=== PATIENT | male | born 1970 | race Caucasian/White ===

== ENCOUNTER 2016-12-14 13:12 | Inpatient (IN) | payer OTHER ==
[2016-12-14 14:27] VITALS: BMI 28.4
--- NOTE | 2016-12-14 16:11 | HP ---
CIWA Score - CIWA Score Nausea/Vomitin Muscle Tremors: 3 Anxiety: 3 Agitation: 3 Paroxysmal Sweats: 2 Orientation: 0-Oriented Tacttile Disturbances: 2-Mild Itch/Numbness/Burn Auditory Disturbances: 2-Mild Harshness/Frighten Visual Disturbances: 2-Mild Sensitivity Headache: 2-Mild CIWA-Ar Total Score: 22 Admission ROS BHS - HPI Chief Complaint: need help to stop drinking alcohol,cocaine,marijuana,heroin dependence, withdrawal symptom last detox 10/04 [place] syncope alcohol related anxiety,depression,insomnia no significant period of sobriety type 2 dm Allergies/Adverse Reactions: Allergies Allergy/AdvReac Type Severity Reaction Status Date / Time No Known Allergies Allergy Verified 12/14/16 16:02 History of Present Illness: this 46 years old male with alcohol ,cocaine,marijuana dependence,heroin dependence for detox as mentioned above for inpatient detox Exam Limitations: No Limitations - Ebola screening Have you traveled outside of the country in the last 21 days: No Have you had contact with anyone from an Ebola affected area: No Have you been sick,other than usual withdrawal symptoms: No Do you have a fever: No - Review of Systems Constitutional: Loss of Appetite, Malaise, Night Sweats, Changes in sleep, Unintentional Wgt. Loss, Other EENT: reports: Nose Congestion Respiratory: reports: No Symptoms reported Cardiac: reports: Palpitations GI: reports: Diarrhea, Nausea, Poor Appetite, Abdominal cramping : reports: No Symptoms Reported Musculoskeletal: reports: Back Pain, Muscle Pain Integumentary: reports: Dryness Neuro: reports: Headache, Tremors Endocrine: reports: No Symptoms Reported Hematology: reports: No Symptoms Reported Psychiatric: reports: Anxious, Depressed (insomnia) Patient History - Patient Medical History Hx Anemia: No Hx Asthma: No Hx Chronic Obstructive Pulmonary Disease (COPD): No Hx Cancer: No Hx Cardiac Disorders: No Hx Congestive Heart Failure: No Hx Hypertension: No Hx Hypercholesterolemia: No Hx Pacemaker: No HX Cerebrovascular Accident: No Hx Seizures: No Hx Dementia: No Hx Diabetes: Yes (no med) Hx Gastrointestinal Disorders: No Hx Liver Disease: No Hx Genitourinary Disorders: No Hx Sexually Transmitted Disorders: No Hx Renal Disease (ESRD): No Hx Thyroid Disease: No Hx Human Immunodeficiency Virus (HIV): No (last 2015 negative) Hx Hepatitis C: No Hx Depression: Yes (anxiety) Hx Suicide Attempt: No Hx Bipolar Disorder: No Hx Schizophrenia: No Other Medical History: no suicidal,no homicidal - Patient Surgical History Past Surgical History: No - PPD History Previous Implant?: Yes Documented Results: Negative w/o proof - Smoking Cessation Smoking history: Current every day smoker Have you smoked in the past 12 months: Yes Aproximately how many cigarettes per day: 10 Cigars Per Day: 0 Hx Chewing Tobacco Use: No Initiated information on smoking cessation: Yes 'Breaking Loose' booklet given: 12/14/16 - Substances Abused Alcohol Route: Oral Frequency: Daily Amount used: 6PK BEER Age of first use: 14 Date of Last Use: 12/14/16 Crack Route: Oral Frequency: Daily Amount used: $100 Age of first use: 21 Date of Last Use: 12/14/16 Heroin Route: Inhalation Frequency: 3-6 times per week Amount used: 1 BAG Age of first use: 25 Date of Last Use: 12/13/16 Marijuana/Hashish Route: Smoking Frequency: Daily Amount used: $30 Age of first use: 13 Date of Last Use: 12/13/16 Family Disease History - Family Disease History Family History: Denies Admission Physical Exam [facility] - Vital Signs Vital Signs: Vital Signs - 24 hr 12/14/16 14:25 Temperature 98 F Pulse Rate 80 Respiratory 20 Rate Blood Pressure 125/66 - Physical General Appearance: Yes: Moderate Distress, Tremorous, Irritable, Sweating, Anxious HEENTM: Yes: Normal ENT Inspection, Pharynx Normal, Nasal Congestion Respiratory: Yes: Lungs Clear, Normal Breath Sounds, No Respiratory Distress Neck: Yes: Within Normal Limits Breast: Yes: Within Normal Limits Cardiology: Yes: Within Normal Limits, Regular Rhythm, Regular Rate, S1, S2 Abdominal: Yes: Within Normal Limits, Normal Bowel Sounds, Non Tender, Flat, Soft Genitourinary: Yes: Within Normal Limits Back: Yes: Normal Inspection, Muscle Spasm Musculoskeletal: Yes: Back pain, Muscle Pain Extremities: Yes: Normal Range of Motion, Tremors Neurological: Yes: dog and cat food cook II-XII NML intact, Fully Oriented, Alert, Motor Strength 5/5 Integumentary: Yes: Dry Lymphatic: Yes: Within Normal Limits - Diagnostic (1) Alcohol dependence with uncomplicated withdrawal Current Visit: Yes Status: Acute (2) Cocaine dependence Current Visit: Yes Status: Acute (3) Cannabis dependence Current Visit: Yes Status: Acute (4) Heroin dependence Current Visit: Yes Status: Acute (5) Syncope Current Visit: Yes Status: Acute (6) Low back pain Current Visit: Yes Status: Acute (7) Anxiety and depression Current Visit: Yes Status: Acute (8) DM type 2 (diabetes mellitus, type 2) Current Visit: Yes Status: Acute Cleared for Admission [facility] - Detox or Rehab [facility] Level of Care: Medically Managed Detox Regimen/Protocol: Librium (urine for drug screen negative for opiate patient is awared he will not get methadone) [facility] Breath Alcohol Content Breath Alcohol Content: 0 Urine Drug Screen - Results Drug Screen Negative: No Urine Drug Screen Results: THC-Marijuana, SHAHANA-Cocaine
[2016-12-14] MEDS ORDERED: MAGNESIUM HYDROX 2400MG/30ML ORAL SUSPENSION 30 ML CUP PO PRN (16:34)
[2016-12-14] MEDS ORDERED: hydrOXYzine PAMOATE 50 MG CAPSULE (FP) PO PRN (16:34)
[2016-12-14] MEDS ORDERED: MAGNESIUM CITRATE 300 ML BOTTLE PO PRN (16:34)
[2016-12-14] MEDS ORDERED: P-EPHED 60MG/TRIPROLIDI 2.5MG TABLET PO PRN (16:34)
[2016-12-14] MEDS ORDERED: MAG HYDROX/AL HYDROX/SIMETH 30 ML UNIT-DOSE CUP PO PRN (16:34)
[2016-12-14] MEDS ORDERED: MENTHOL/PHENOL 1 EACH UD MM PRN (16:34)
[2016-12-14] MEDS ORDERED: diphenhydrAMINE HCL 50 MG CAPSULE PO PRN (16:34)
[2016-12-14] MEDS ORDERED: LOPERAMIDE HCL 2 MG CAPSULE PO PRN (16:34)
[2016-12-14] MEDS ORDERED: guaiFENesin/D-METHORPHAN HB 10 ML UNIT-DOSE CUPS PO PRN (16:34)
[2016-12-14] MEDS ORDERED: chlordiazePOXIDE HCL 25 MG CAPSULE PO PRN (16:34)
[2016-12-14] MEDS ORDERED: CYCLOBENZAPRINE HCL 10 MG TABLET (FP) PO PRN (16:36)
[2016-12-14] MEDS ORDERED: chlordiazePOXIDE HCL 25 MG CAPSULE PO ONE (17:15)
[2016-12-14] MEDS: cloNIDine HCL 0.1 MG TABLET PO SCH (22:14)
[2016-12-14] MEDS: THIAMINE HCL 100 MG TABLET (FP) PO SCH (22:14)
[2016-12-14] MEDS: chlordiazePOXIDE HCL 25 MG CAPSULE PO SCH (22:14)
[2016-12-15] MEDS: ACETAMINOPHEN 325 MG TABLET (FP) PO PRN (04:13)
[2016-12-15] MEDS: chlordiazePOXIDE HCL 25 MG CAPSULE PO SCH (05:05)
[2016-12-15] MEDS ORDERED: diazePAM 5 MG TABLET PO PRN (08:59)
--- NOTE | 2016-12-15 09:04 | PN ---
S CIWA - CIWA Score Nausea/Vomitin Muscle Tremors: 3 Anxiety: 3 Agitation: 3 Paroxysmal Sweats: 1-Minimal Palms Moist Orientation: 0-Oriented Tacttile Disturbances: 1-Very Mild Itch/Numbness Auditory Disturbances: 1-Very Mild Visual Disturbances: 1-Very Mild Sensitivity Headache: 2-Mild CIWA-Ar Total Score: 18 BHS Progress Note (SOAP) Subjective: ALERT,IRRITABLE,ANXIOUS,INTERRUPTED SLEEP,TREMOR,PAIN IN THE BODY AND BACK Objective: 12/15/16 09:01 Vital Signs Temperature 97.9 F 12/15/16 06:24 Pulse Rate 79 12/15/16 06:24 Respiratory Rate 18 12/15/16 06:24 Blood Pressure 127/87 12/15/16 06:24 O2 Sat by Pulse Oximetry (%) EKG NSR,OCCASIONAL VPC, NO CHEST PAIN,NO SOB,NO DIZZINESS 12/15/16 09:02 Laboratory Last Values POC Glucometer 117 UNITS (()) 12/15/16 05:04 LABS PENDING Assessment: 12/15/16 09:03 WITHDRAWAL SYMPTOM Plan: CONTINUE DETOX,PATIENT WOULD LIKE [facility] TO BECHANGED TO [facility]
[2016-12-15] MEDS ORDERED: diazePAM 5 MG TABLET PO ONE (09:19)
[2016-12-15] MEDS: cloNIDine HCL 0.1 MG TABLET PO SCH ×2 (10:05→22:14)
[2016-12-15] MEDS: PRENATAL VITAMINS W/ FOLIC ACID TABLET (FP) PO SCH (10:05)
[2016-12-15 10:12] LABS: MCHC 33.3 g/dl (32.0-35.9); MEAN CELL VOLUME 93.1 fl (80-96); MEAN PLT VOLUME 10.9 fl (7.5-11.1); PLATELET COUNT 174 K/MM3 (134-434); RDW 13.4 % (11.9-15.9); WHITE BLOOD COUNT 4.6 K/mm3 (4.0-10.0)
--- NOTE | 2016-12-15 10:26 | CONSULT ---
[facility] Psychiatric Consult - Data Date of interview: 12/15/16 Admission source: [facility] Identifying data: First admission to [facility] for this 46 y/o male seeking detox treatment for alcohol,cocaine,heroin and cannabis dependence.Patient is single,a father of one,homeless,unemployed and supported on food stamps. Substance Abuse History: Smoking Cessation. Smoking history: Current every day smoker. Have you smoked in the past 12 months: Yes. Aproximately how many cigarettes per day: 10. Cigars Per Day: 0. Hx Chewing Tobacco Use: No. Initiated information on smoking cessation: Yes. 'Breaking Loose' booklet given : 12/14/16. - Substances Abused. Alcohol. Route: Oral. Frequency: Daily. Amount used: 6PK BEER. Age of first use: 14. Date of Last Use: 12/14/16. * * Crack. Route: Oral. Frequency: Daily. Amount used: $100. Age of first use : 21. Date of Last Use: 12/14/16. Heroin. Route: Inhalation. Frequency: 3 -6 times per week. Amount used: 1 BAG. Age of first use: 25. Date of Last Use : 12/13/16. Marijuana/Hashish. Route: Smoking. Frequency: Daily. Amount used: $30. Age of first use: 13. Date of Last Use: 12/13/16. Confirmed by patient. Medical History: Lower back pain and diabetes mellitus (NIDDM). Psychiatric History: Patient denies. Physical/Sexual Abuse/Trauma History: Patient denies. Additional Comment: Urine Drug Screen Results: THC-Marijuana, SHAHANA-Cocaine.Noted. Mental Status Exam - Mental Status Exam Alert and Oriented to: Time, Place, Person Cognitive Function: Good Patient Appearance: Unkempt, Disheveled (unshaven) Mood: Angry, Withdrawn, Irritable Affect: Constricted Patient Behavior: Fatigued, Uncooperative Speech Pattern: Clear Voice Loudness: Normal Thought Process: Goal Oriented Thought Disorder: Not Present Hallucinations: Denies Suicidal Ideation: Denies Homicidal Ideation: Denies Insight/Judgement: Poor Sleep: Fair Appetite: Good Muscle strength/Tone: Normal Gait/Station: Normal Psychiatric Findings - Problem List ([place] 1, 2,3) (1) Alcohol dependence with uncomplicated withdrawal Current Visit: Yes Status: Acute (2) Cannabis dependence Current Visit: Yes Status: Acute (3) Cocaine dependence Current Visit: Yes Status: Acute (4) Heroin dependence Current Visit: Yes Status: Acute (5) Nicotine dependence Current Visit: Yes Status: Acute (6) Substance induced mood disorder Current Visit: Yes Status: Acute (7) DM type 2 (diabetes mellitus, type 2) Current Visit: Yes Status: Chronic (8) Low back pain Current Visit: Yes Status: Chronic - Initial Treatment Plan Initial Treatment Plan: Psychoeducation.Detoxification.Observation.
[2016-12-15 10:51] LABS: ALBUMIN 3.9 g/dl (3.4-5.0); ALK PHOS 84 U/L (45-117); ANION GAP 9 (8-16); BILIRUBIN,TOTAL 0.4 mg/dL (0.2-1.0); CALCIUM 8.4 mg/dL (8.5-10.1); CO2 29 mmol/L (21-32); CREATININE 1.1 mg/dL (0.7-1.3); GLUCOSE,RANDOM 115 mg/dL (74-106); SGOT/AST 19 U/L (15-37); SGPT/ALT 25 U/L (12-78); TOT PROT 6.7 g/dl (6.4-8.2)
[2016-12-15 10:52] LABS: HIV 1 & 2 AB NEGATIVE; HIV 1 AGp24 NEGATIVE
--- NOTE | 2016-12-15 12:36 | EKG ---
Test Reason : Blood Pressure : / mmHG Vent. Rate : 066 BPM Atrial Rate : 066 BPM P-R Int : 150 ms QRS Dur : 100 ms QT Int : 420 ms P-R-T Axes : 056 047 029 degrees QTc Int : 440 ms SINUS RHYTHM WITH OCCASIONAL PREMATURE VENTRICULAR COMPLEXES MINIMAL VOLTAGE CRITERIA FOR LVH, MAY BE NORMAL VARIANT BORDERLINE ECG NO PREVIOUS ECGS AVAILABLE Confirmed by YEVGENIY JONAS MD ([id number]) on 12/15/2016 12:36:37 PM Referred By: Confirmed By:YEVGENIY JONAS MD
[2016-12-15] MEDS: diazePAM 5 MG TABLET PO SCH ×2 (14:49→22:14)
[2016-12-15] MEDS: IBUPROFEN 400 MG TABLET (FP) PO PRN (14:50)
[2016-12-15] MEDS: THIAMINE HCL 100 MG TABLET (FP) PO SCH (22:51)
[2016-12-15] MEDS ORDERED: chlordiazePOXIDE HCL 25 MG CAPSULE PO SCH (23:00)
[2016-12-16] MEDS: IBUPROFEN 400 MG TABLET (FP) PO PRN ×3 (01:03→16:34)
[2016-12-16] MEDS: diazePAM 5 MG TABLET PO SCH ×2 (05:33→13:18)
--- NOTE | 2016-12-16 09:38 | PN ---
[facility] CIWA - CIWA Score Nausea/Vomitin-No Nausea/No Vomiting Muscle Tremors: 4-Moderate,w/Arms Extend Anxiety: 4-Mod. Anxious/Guarded Agitation: 4-Moderately Restless Paroxysmal Sweats: 1-Minimal Palms Moist Orientation: 0-Oriented Tacttile Disturbances: 3-Moderate Itch/Numb/Burn Auditory Disturbances: 0-None Visual Disturbances: 0-None Headache: 0-None Present CIWA-Ar Total Score: 16 S Progress Note (SOAP) Subjective: ANXIETY,SWEATS,IRRITABILITY,TOOTHACHE/JAW PAIN/HEADACHE-UNABLE TO SLEEP DUE TO PAIN--DECAYED RIGHT LOWER MOLAR. Objective: 12/16/16 09:37 Vital Signs Temperature 95.8 F L 12/16/16 06:13 Pulse Rate 80 12/16/16 06:13 Respiratory Rate 16 12/16/16 06:13 Blood Pressure 105/68 12/16/16 06:13 O2 Sat by Pulse Oximetry (%) Laboratory Last Values WBC 4.6 K/mm3 (4.0-10.0) 12/15/16 06:00 RBC 4.79 M/mm3 (4.00-5.60) 12/15/16 06:00 Hgb 14.8 GM/dL (11.7-16.9) 12/15/16 06:00 Hct 44.6 % (35.4-49) 12/15/16 06:00 MCV 93.1 fl (80-96) 12/15/16 06:00 MCHC 33.3 g/dl (32.0-35.9) 12/15/16 06:00 RDW 13.4 % (11.9-15.9) 12/15/16 06:00 Plt Count 174 K/MM3 (134-434) 12/15/16 06:00 MPV 10.9 fl (7.5-11.1) 12/15/16 06:00 Sodium 140 mmol/L (136-145) 12/15/16 06:00 Potassium 4.2 mmol/L (3.5-5.1) 12/15/16 06:00 Chloride 102 mmol/L (98-107) 12/15/16 06:00 Carbon Dioxide 29 mmol/L (21-32) 12/15/16 06:00 Anion Gap 9 (8-16) 12/15/16 06:00 BUN 14 mg/dL (7-18) 12/15/16 06:00 Creatinine 1.1 mg/dL (0.7-1.3) 12/15/16 06:00 Creat Clearance w eGFR > 60 (>60) 12/15/16 06:00 POC Glucometer 117 UNITS (()) 12/15/16 05:04 Random Glucose 115 mg/dL (74-106) H 12/15/16 06:00 Calcium 8.4 mg/dL (8.5-10.1) L 12/15/16 06:00 Total Bilirubin 0.4 mg/dL (0.2-1.0) 12/15/16 06:00 AST 19 U/L (15-37) 12/15/16 06:00 ALT 25 U/L (12-78) 12/15/16 06:00 Alkaline Phosphatase 84 U/L (45-117) 12/15/16 06:00 Total Protein 6.7 g/dl (6.4-8.2) 12/15/16 06:00 Albumin 3.9 g/dl (3.4-5.0) 12/15/16 06:00 RPR Titer Nonreactive (NONREACTIVE) 12/15/16 06:00 HIV 1&2 Antibody Screen Negative 12/14/16 08:00 HIV P24 Antigen Negative 12/14/16 08:00 LEFT LOWER MOLAR TOOTH DECAY/REDNESS/SWELLING. Assessment: 12/16/16 09:38 WITHDRAWAL SX Plan: CONTINUE DETOX AUGMENTIN 875 MG PO BID VISCOUS LIDOCAINE 2% 5 ML SWISH AND SPIT Q3H PRN
[2016-12-16] MEDS ORDERED: LIDOCAINE VISCOUS 2% ORAL/TOP 20 ML UNIT-DOSE CUP MM PRN (09:52)
[2016-12-16] MEDS ORDERED: AMOX TR/POT CLAV 875MG/125MG TABLETS (FP) PO ONE (10:00)
[2016-12-16] MEDS: ACETAMINOPHEN 325 MG TABLET (FP) PO PRN (10:17)
[2016-12-16] MEDS: PRENATAL VITAMINS W/ FOLIC ACID TABLET (FP) PO SCH (10:18)
[2016-12-16] MEDS: cloNIDine HCL 0.1 MG TABLET PO SCH (10:19)
[2016-12-16 13:22] VITALS: BP 103/69; PULSE 85; TEMP 98.1
[2016-12-16] MEDS ORDERED: AMOX TR/POT CLAV 875MG/125MG TABLETS (FP) PO SCH (17:30)
--- NOTE | 2016-12-16 19:11 | DS ---
[facility] Detox Discharge Summary Admission Date: 12/14/16 Discharge Date: 12/16/16 - History Present History: Alcohol Dependence, Cannabis Dependence, Cocaine Dependence, Opioid Dependence Additional Comments: patient insists to leave the unit, refuses to wait face to face with the provider consider follow up as per arranged by the counselor refuse e prescription Pertinent Past History: diabetes ii depression nicotine dependence - Physical Exam Results Vital Signs: Vital Signs Temperature 98.1 F 12/16/16 13:21 Pulse Rate 85 12/16/16 13:21 Respiratory Rate 18 12/16/16 13:21 Blood Pressure 103/69 12/16/16 13:21 O2 Sat by Pulse Oximetry (%) Pertinent Admission Physical Exam Findings: withdrawal sx Laboratory Last Values WBC 4.6 K/mm3 (4.0-10.0) 12/15/16 06:00 RBC 4.79 M/mm3 (4.00-5.60) 12/15/16 06:00 Hgb 14.8 GM/dL (11.7-16.9) 12/15/16 06:00 Hct 44.6 % (35.4-49) 12/15/16 06:00 MCV 93.1 fl (80-96) 12/15/16 06:00 MCHC 33.3 g/dl (32.0-35.9) 12/15/16 06:00 RDW 13.4 % (11.9-15.9) 12/15/16 06:00 Plt Count 174 K/MM3 (134-434) 12/15/16 06:00 MPV 10.9 fl (7.5-11.1) 12/15/16 06:00 Sodium 140 mmol/L (136-145) 12/15/16 06:00 Potassium 4.2 mmol/L (3.5-5.1) 12/15/16 06:00 Chloride 102 mmol/L (98-107) 12/15/16 06:00 Carbon Dioxide 29 mmol/L (21-32) 12/15/16 06:00 Anion Gap 9 (8-16) 12/15/16 06:00 BUN 14 mg/dL (7-18) 12/15/16 06:00 Creatinine 1.1 mg/dL (0.7-1.3) 12/15/16 06:00 Creat Clearance w eGFR > 60 (>60) 12/15/16 06:00 POC Glucometer 117 UNITS (()) 12/15/16 05:04 Random Glucose 115 mg/dL (74-106) H 12/15/16 06:00 Calcium 8.4 mg/dL (8.5-10.1) L 12/15/16 06:00 Total Bilirubin 0.4 mg/dL (0.2-1.0) 12/15/16 06:00 AST 19 U/L (15-37) 12/15/16 06:00 ALT 25 U/L (12-78) 12/15/16 06:00 Alkaline Phosphatase 84 U/L (45-117) 12/15/16 06:00 Total Protein 6.7 g/dl (6.4-8.2) 12/15/16 06:00 Albumin 3.9 g/dl (3.4-5.0) 12/15/16 06:00 RPR Titer Nonreactive (NONREACTIVE) 12/15/16 06:00 HIV 1&2 Antibody Screen Negative 12/14/16 08:00 HIV P24 Antigen Negative 12/14/16 08:00 lab noted - Treatment Hospital Course: Detox Protocol Followed, Responded well - Medication Discharge Medications: Ambulatory Orders NK [No Known Home Medication] 12/14/16 - Diagnosis (1) Alcohol dependence with uncomplicated withdrawal Status: Acute (2) Nicotine dependence Status: Acute Qualifiers: Nicotine product type: cigarettes Substance use status: in withdrawal Qualified Code(s): F17.213 - Nicotine dependence, cigarettes, with withdrawal (3) DM type 2 (diabetes mellitus, type 2) Status: Acute Qualifiers: Diabetes mellitus complication status: without complication Diabetes mellitus superintendent container terminal insulin use: without superintendent container terminal use Qualified Code(s): E11.9 - Type 2 diabetes mellitus without complications (4) Opioid dependence with withdrawal Status: Acute (5) Cocaine dependence, uncomplicated Status: Chronic (6) Cannabis dependence, uncomplicated Status: Chronic - AMA Did Patient Leave Against Medical Advice: Yes
[2016-12-16 20:00] LABS: URINE APPEARANCE CLEAR; URINE BILIRUBIN NEGATIVE (NEGATIVE); URINE BLOOD NEGATIVE (NEGATIVE); URINE COLOR YELLOW; URINE GLUCOSE (UA) NEGATIVE (NEGATIVE); URINE KETONE NEGATIVE (NEGATIVE); URINE LEUK ESTERASE NEGATIVE (NEGATIVE); URINE NITRITE NEGATIVE (NEGATIVE); URINE PROTEIN NEGATIVE (NEGATIVE); URINE UROBILINOGEN NEGATIVE E.U./dl (0.2-1.0)
[2016-12-16] MEDS ORDERED: chlordiazePOXIDE 5 MG CAPSULE PO SCH (23:00)
[2016-12-17] MEDS ORDERED: diazePAM 5 MG TABLET PO SCH (10:00)
[2016-12-17] MEDS ORDERED: chlordiazePOXIDE HCL 10 MG CAPSULE PO SCH (23:00)
[2016-12-19] MEDS ORDERED: diazePAM 5 MG TABLET PO SCH (10:00)
== END 2016-12-16 16:35 | disposition left against medical advice (07) | DRG 770 ==
LOC: YASAS 13:12 → Y3N 16:03
PROVIDERS: ADMIT Internal Medicine; ATTEND Internal Medicine
PROC: HZ2ZZZZ Detoxification Services for Substance Abuse Treatment (ICD-10-PCS; principal; 2016-12-14)
DX: F10.230 Alcohol dependence with withdrawal, uncomplicated (principal); F11.20 Opioid dependence, uncomplicated; F14.20 Cocaine dependence, uncomplicated; F12.20 Cannabis dependence, uncomplicated; F17.210 Nicotine dependence, cigarettes, uncomplicated; F19.24 Other psychoactive substance dependence with psychoactive substance-induced mood disorder; F41.8 Other specified anxiety disorders; E11.9 Type 2 diabetes mellitus without complications; K02.9 Dental caries, unspecified; M54.5 Low back pain; G89.29 Other chronic pain; Z86.79 Personal history of other diseases of the circulatory system
CPT/HCPCS: 36415; 80053; 81003; 85027; 86593; 87389; 93005; 93010